=== PATIENT | male | born 1960 | race Asian ===

== ENCOUNTER 2021-03-10 11:36 | Day surgery (SDC) | payer OTHER, SELFPAY ==
[~2021-03-10] VITALS: Ht 177.8 cm; Wt 59.0 kg
[~2021-03-10 11:36] MED LIST: DIPHENHYDRAMINE INJ 50 MG/ML VIAL ONE; MIDAZOLAM HCL 5 MG/5 ML VIAL ONE
[2021-03-10] MEDS ORDERED: NS 1000 ML IV.SOLN IV ONE (11:37)
[2021-03-10] MEDS ORDERED: BUPIVACAINE /EPINEPHRINE/PF 0.25% 30 ML VIAL INJ ONE (11:37)
[2021-03-10] MEDS ORDERED: methylPREDNISolone ACETATE 40 MG/ML IM ONE (11:37)
[2021-03-10] MEDS ORDERED: LIDOCAINE 2%, 20 ML MDV IM ONE (11:37)
[2021-03-10] MEDS ORDERED: ISOVUE-300 (IOPAMIDOL) 100 ML INFUS..BTL IV ONE (11:37)
[2021-03-10 17:38] VITALS: BP_SYST 117
== END 2021-03-10 16:00 | disposition home or self-care (01) ==
LOC: SDS 11:36 → EDSEX 14:30 → SDS 16:00
PROVIDERS: ATTEND Internal Medicine
DX: M50.13 Cervical disc disorder with radiculopathy, cervicothoracic region (principal); Z79.899 Other long term (current) drug therapy; Z20.822 Contact with and (suspected) exposure to COVID-19
CPT/HCPCS: 36415; 62321; 87426; J1030; J1200; J2001; J2250; J3490; J7030; Q9967; U0003; 76000